=== PATIENT | male | born 1995 | race Caucasian/White ===

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

== ENCOUNTER 2018-03-23 14:20 | Emergency (ER) | payer MEDICAID ==
[~2018-03-23] VITALS: Ht 170.2 cm; Wt 83.2 kg
[2018-03-23 14:34] VITALS: Ht 170.2 cm; Wt 83.2 kg
[2018-03-23] MEDS ORDERED: TORADOL10 MG PO (16:58)
[2018-03-23 17:30] VITALS: BP 108/72
== END 2018-03-23 17:30 | disposition home or self-care (01) ==
LOC: D.ER 14:20
DX: S62.316A Displaced fracture of base of fifth metacarpal bone, right hand, initial encounter for closed fracture (principal); W22.01XA Walked into wall, initial encounter; Y93.89 Activity, other specified; Y92.019 Unspecified place in single-family (private) house as the place of occurrence of the external cause